=== PATIENT | female | born 1990 | race African-American/Black ===

== ENCOUNTER 2018-03-17 18:30 | Emergency (ER) | payer SELFPAY ==
[~2018-03-17] VITALS: Ht 157.5 cm; Wt 81.6 kg
--- NOTE | 2018-03-17 19:02 | Emergency Room Report ---
History of Present Illness General Chief Complaint: Flu Like Symptoms Source: Patient Present Illness HPI 28-year-old female presents to the emergency department complaining of dry persistent cough 4 days. Patient reports 4 out of 10 in severity sore throat and bodyaches. Patient denies fevers or chills. Patient reports history of bronchitis denies history of asthma, COPD or tobacco use. Denies ear pain, high fevers, lethargy, neck pain/stiffness, irritability, photophobia dehydration, N/V/D. Denies Cp, Palpitations, LOC, AMS, seizures, paresthesias, or changes in Hearing or vision, no Sudden severe MARTINEZ. Allergies: Coded Allergies: No Known Allergies (Unverified , 03/17/18) Patient History Past Medical History: see triage record Past Surgical History: none Pertinent Family History: none Now: No Immunizations: UTD Reviewed Nursing Documentation: PMH: Agreed; PSxH: Agreed Review of Systems All Other Systems: negative except mentioned in HPI Physical Exam Vital Signs Date Time Temp Pulse Resp B/P (MAP) Pulse Ox O2 Delivery O2 Flow Rate FiO2 03/17/18 18:39 98.8 105 19 108/70 98 Room Air Sp02 EP Interpretation: reviewed, normal General Appearance: no apparent distress, alert, GCS 15, non-toxic Head: normocephalic, atraumatic Eyes: bilateral eye normal inspection, bilateral eye PERRL ENT: hearing grossly normal, normal voice Neck: full range of motion, no meningismus Respiratory: lungs clear, normal breath sounds, no rhonchi, no respiratory distress, no accessory muscle use, no wheezing, speaking full sentences Cardiovascular #1: regular rate, rhythm Musculoskeletal: back normal, gait/station normal, normal range of motion, non- tender Neurologic: alert, oriented x3, responsive, motor strength/tone normal, sensory intact, speech normal, grossly normal Psychiatric: judgement/insight normal Skin: normal color, no rash, warm/dry, well hydrated Lymphatic: no adenopathy Medical Decision Making PA Attestation Dr. grover is my supervising Physician whom patient management has been discussed with. Diagnostic Impression: Primary Impression: Bronchitis ER Course 28-year-old female presents to the emergency department complaining of dry persistent cough 4 days. Patient reports 4 out of 10 in severity sore throat and bodyaches. Patient denies fevers or chills. Patient reports history of bronchitis denies history of asthma, COPD or tobacco use. Denies ear pain, high fevers, lethargy, neck pain/stiffness, irritability, photophobia dehydration, N/V/D. Denies Cp, Palpitations, LOC, AMS, seizures, paresthesias, or changes in Hearing or vision, no Sudden severe MARTINEZ. Ddx considered but are not limited to URI, pneumonia, PE, strep pharyngitis, meningitis. Vital signs: Pt.is afebrile VS are WNL H&PE are most consistent with bronchitis ORDERS: none required at this time, the diagnosis is clinical ED INTERVENTIONS: None required at this time. DISCHARGE: At this time pt. is stable for d/c to home. Will provide printed patient care instructions, and any necessary prescriptions. Care plan and follow up instructions have been discussed with the patient prior to discharge. Last Vital Signs Date Time Temp Pulse Resp B/P (MAP) Pulse Ox O2 Delivery O2 Flow Rate FiO2 03/17/18 18:39 98.8 105 19 108/70 98 Room Air Disposition: HOME, SELF-CARE Condition: Stable Scripts Lidocaine HCl 2% Viscous (Lidocaine HCl 2% Viscous) 100 Ml Solution 15 ML ORAL QID, #200 ML Prov: Olga Lidia Lemus 03/17/18 Prednisone* (PREDNISONE*) 20 Mg Tablet 20 MG ORAL DAILY for 5 Days, #5 TAB 0 Refills Prov: Olga Lidia Lemus 03/17/18 Albuterol Sulfate* (ALBUTEROL SULFATE MDI*) 8.5 Gm Hfa.aer.ad 2 PUFF INH Q3H, #1 INH 0 Refills Prov: Olga Lidia Lemus 03/17/18 Codeine/Promethazine Hcl* (PROMETHAZINE-CODEINE SYRUP*) 118 Ml Syrup 5 ML ORAL Q6H PRN for For Cough, #120 ML 0 Refills Prov: Olga Lidia Lemus 03/17/18 Patient Instructions: Acute Bronchitis, [id number] Additional Instructions: Take medications as directed. Follow up with a Primary Care Provider in 3-5 days, even if your symptoms have resolved. --Please review list of primary care clinics, if you do not already have a primary care provider Return sooner to ED if new symptoms occur, or current symptoms become worse. Do not drink alcohol, drive, or operate heavy machinery while taking Cough Syrup as this may cause drowsiness. - Please note that this Emergency Department Report was dictated using [employer] operating engineer technology software, occasionally this can lead to erroneous entry secondary to interpretation by the dictation equipment. Olga Lidia Lemus Mar 17, 2018 19:02
[2018-03-17] MEDS ORDERED: PROMETHAZINE-C118 M1 ORAL (19:04)
[2018-03-17] MEDS ORDERED: PREDNISONE20 MG ORAL (19:04)
[2018-03-17] MEDS ORDERED: ALBUTEROL SULF8.5 GM INH (19:04)
[2018-03-17] MEDS ORDERED: LIDOCAINE VISC100 ML ORAL (19:04)
[2018-03-17 19:13] VITALS: BP 108/70
--- NOTE | 2018-03-17 19:15 | NUR ---
ED Nurse Note:pt. came with cough and flu like symptoms
[2018-03-17 19:20] VITALS: BP 112/74
--- NOTE | 2018-03-17 19:20 | NUR ---
ER Nurse Note: Pt seen, treated, medically cleared for discharge by ERMD. Discharge instructions and prescriptions given with repeat verbalization by pt. Instructed pt to follow up with primary care physican within one week. Pt a&ox4, VSS, no signs of distress. ID removed. Pt left with steady gait with all belongings via own transportation.
== END 2018-03-17 19:20 | disposition home or self-care (01) ==
LOC: EMR 19:12
DX: J40 Bronchitis, not specified as acute or chronic (principal)
CPT/HCPCS: 99282